=== PATIENT | female | born 2000 | race African-American/Black ===

== ENCOUNTER 2020-04-07 20:48 | Emergency (ER) | payer MEDICAID, OTHER ==
[~2020-04-07] VITALS: Ht 175.3 cm; Wt 89.0 kg
[2020-04-07 20:52] VITALS: BP 113/61
== END 2020-04-08 01:49 | disposition home or self-care (01) ==
LOC: ER 21:00
DX: R10.9 Unspecified abdominal pain (principal); Z53.21 Procedure and treatment not carried out due to patient leaving prior to being seen by health care provider
CPT/HCPCS: 93005